=== PATIENT | male | born 1965 | race Caucasian/White ===

== ENCOUNTER 2019-03-04 17:11 | Inpatient (IN) ==
[2019-03-04] MEDS ORDERED: NS 1,000 ML IV ONE ×2 (17:35→19:21)
[2019-03-04] MEDS ORDERED: ASPIRIN EC PO ONE (17:36)
--- NOTE | 2019-03-04 17:51 | EKG Report ---
Test Performed on : 03/04/2019 5:22:27 PM Test Reason : chest pain Blood Pressure : / mmHG Vent. Rate : 119 BPM Atrial Rate : 119 BPM P-R Int : 132 ms QRS Dur : 096 ms QT Int : 350 ms P-R-T Axes : 048 033 164 degrees QTc Int : 492 ms Sinus tachycardia. Left atrial enlargement Left ventricular hypertrophy with repolarization abnormality Abnormal ECG When compared with ECG of 04-MAR-2019 17:21, (Unconfirmed) No significant change was found Unconfirmed Result
--- NOTE | 2019-03-04 18:01 | PROVIDER DOCUMENTATION ---
This chart was entered by Ricky Hardy Scribe, acting as scribe for Javan Arias MD. HPI-Chest Pain - General Source: patient, family - History of Present Illness-CP Location: reports: epigastric, abdomen Chest Pain Radiation: reports: no radiation Quality of Pain: reports: aching Severity in ED: moderate Onset/Duration: 2 days ago (SOB), this evening (chest pains) Timing: still present Context/Activities at Onset: reports: none Modifying Factors: worse with: breathing Associated Symptoms: reports: abdominal pain, shortness of breath. denies: back pain, diaphoresis, fever/chills, nausea, vomiting Nitro Today/Relief: no nitro taken today Aspirin Treatment Today: no aspirin today Prior Chest Pain/Cardiac Workup: reports: no prior chest pain Similar Symptoms Previously?: No Recently Seen Here or By Another Healthcare Provider: No <Javan Arias - Last Filed: 03/04/19 18:58> <Oly Gaona - Last Filed: 03/04/19 21:19> - General Chief Complaint: Chest Pain Stated Complaint: CP,SOB,COUGHING,ABD PAIN Time Seen by Provider: 03/04/19 17:31 Allergies/Adverse Reactions: Patient Allergies Allergy/AdvReac Type Severity Reaction Status Date / Time acetaminophen [From Percocet] AdvReac DIARRHEA Verified 03/04/19 20:41 oxycodone HCl * AdvReac DIARRHEA Verified 03/04/19 20:41 [From Percocet] Home Medications: Home Medication List Medication Instructions Recorded Confirmed Last Taken Type NK [No Home Medications] 03/04/19 03/04/19 Unknown History - History of Present Illness-CP Nature of Presenting Problem: 53 yom presents to the ed with c/o chest pains. pt states epi chest pains( started yesterday) with epi abdominal pains, " think i have hernia." pt states SOB started 2 days ago. 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 pt states family hx of heart attacks. (Javan Arias) Review of Systems - Adult - REVIEW OF SYSTEMS - ADULT Constitutional: denies: chills, fever Eyes: reports: no symptoms reported Ears, Nose, Mouth & Throat: reports: no symptoms reported Cardiovascular: reports: see HPI, chest pain. denies: syncope Respiratory: reports: see HPI, cough, shortness of breath. denies: chronic cough, wheezing Gastrointestinal: reports: see HPI, abdominal pain. denies: constipation, diarrhea, nausea, rectal bleeding, vomiting Genitourinary: reports: no symptoms reported Musculoskeletal: denies: back pain, neck pain Integumentary: reports: no symptoms reported Neurological: reports: no symptoms reported Psychiatric: reports: no symptoms reported Endocrine: reports: no symptoms reported Hematologic/Lymphatic: reports: no symptoms reported Allergic/Immunologic: reports: no symptoms reported All Other Systems: Reviewed and Negative <Javan Arias - Last Filed: 03/04/19 18:58> Past History - Adult - PAST MEDICAL HISTORY-ADULT Review of Records: reports: Old Records Reviewed, Nursing Assessment Review, Medications Reviewed, Social history reviewed & non-contributory. Major Childhood Illnesses: reports: denies history Cardiovascular: reports: denies history Respiratory: reports: denies history Gastrointestinal: reports: denies history Obstetrical/Gynecological: reports: denies history Genitourinary: reports: denies history Musculoskeletal: reports: denies history Neurological: reports: denies history Psychiatric: reports: denies history Endocrine/Immune: reports: denies history Other Conditions: reports: denies history - PRIOR SURGERIES/PROCEDURES Surgical/Procedure History: reports: none - IMMUNIZATION STATUS Childhood Immunizations: See Nurse Assessment Flu Vaccine: See Nurse Assessment - FAMILY HISTORY Family History: other (hx of heart attacks) - SOCIAL HISTORY Smoking: cigarettes, less than 1 pack/day Provider spent 3-5 mins advising pt. on dangers of tobacco.: Discussed manners to quit use, and f/u contacts for add'l counseling. Substance Use: denies Living Situation: family <Javan Arias - Last Filed: 03/04/19 18:58> Physical Exam-General - PHYSICAL EXAM-ADULT Initial Vital Signs Reviewed: Yes - CONSTITUTIONAL General Appearance: appears well, alert, mild distress - RESPIRATORY Respiratory: chest non-tender, lungs clear, normal breath sounds - CARDIOVASCULAR Cardiovascular: regular rate, rhythm, tachycardia (116) - GASTROINTESTINAL (ABDOMEN) Abdominal Exam: normal bowel sounds, non tender, soft, hernia (upper abdomen) - GENITOURINARY Male Genitalia: deferred Rectal Exam: deferred Hemoccult Exam: deferred - SKIN Integumentary: normal color, normal turgor, warm/dry - NEUROLOGIC Neurologic: grossly normal, no motor/sensory deficits - PSYCHIATRIC Psych/Mental Status: normal mood/affect, normal thought content, normal thought process, oriented x 3 <Javan Arias - Last Filed: 03/04/19 18:58> - HEART Score HEART Score: History: Moderately Suspicious HEART Score: ECG: Non-Specific Repolarization Disturbance/LBBB/PM HEART Score: Age: 45-65 Years HEART Score: Risk Factors for Atherosclerotic Disease: 1 or 2 Risk Factors HEART Score: Troponin: < or = Normal Limit Total HEART Score:: 4 <Javan Arias - Last Filed: 03/04/19 18:58> Progress - PLAN OF CARE/RESULTS Result Diagrams: 03/04/19 17:48 03/04/19 17:48 - EKG 1 Time of EKG reading by physician:: 17:22 EKG Read and Signed by:: Javan Arias EKG Interpretation (*Must complete 3 of following elements*): Abnormal Rate: 119 Rhythm: sinus tachycardia [place]: normal QRS: normal [place] Interval: normal ST Wave: normal Comments: Lt atrial enlargement/Lt ventricular hypertrophy w/repolrization abnormaliy - CONSULTS/PCP/HOSPITALIST Notification #1 *Consult/PCP/Hospitalist*: Dr Millan Time Discussed: 18:00 Reason/Comments: no STEMI, Early repolarization with LVH - CHANGE OF SHIFT REPORT (ED Provider) 1 Report Given and Care Transferred to:: Dr Lamb Time of Transfer: 19:00 Items Pending: Labs, XRAY Results <Javan Arias - Last Filed: 03/04/19 18:58> - PLAN OF CARE/RESULTS Result Diagrams: 03/04/19 17:48 03/04/19 17:48 - REASSESSMENT Reassessment #1 Status: improving (Continued cough and dyspnea likely due to new onset CHF and BL PNA. no spesis. Treated with levaquin, lasix and hydralazine for this BP. Desaturates to 88% on room air. Will admit for further evaluation and treatment. Discussed case with Dr. Bean, Hospitalist, who will see and admit pt.) - CT/MRI 1 CT Study: Angiogram Impression: Abnormal (IMPRESSION: 1.No pulmonary emboli 2.Congestive failure 3.Basilar atelectasis and likely underlying infiltrates) <Oly Gaona - Last Filed: 03/04/19 21:19> - PLAN OF CARE/RESULTS Progress/Plan/Lab Results: Vital Signs - 8 hr 03/04/19 17:17 03/04/19 17:24 03/04/19 17:25 Temperature 97.6 F Pulse Rate 116 H 115 H 117 H Respiratory Rate 28 H Blood Pressure 218/155 218/158 O2 Sat by Pulse Oximetry 88 L 03/04/19 17:27 03/04/19 17:30 03/04/19 17:45 Temperature Pulse Rate 119 H 113 H 117 H Respiratory Rate 28 H Blood Pressure 218/155 O2 Sat by Pulse Oximetry 91 L 92 L 03/04/19 18:00 03/04/19 18:15 03/04/19 18:21 Temperature Pulse Rate 120 H 115 H 112 H Respiratory Rate 18 Blood Pressure 208/151 O2 Sat by Pulse Oximetry 91 L 90 L 90 L 03/04/19 18:24 03/04/19 18:30 03/04/19 18:45 Temperature Pulse Rate 114 H 113 H 121 H Respiratory Rate Blood Pressure 208/151 O2 Sat by Pulse Oximetry 90 L 89 L 91 L 03/04/19 19:00 03/04/19 19:02 03/04/19 19:15 Temperature Pulse Rate 118 H 120 H 117 H Respiratory Rate Blood Pressure 219/160 203/158 O2 Sat by Pulse Oximetry 91 L 92 L 92 L 03/04/19 19:16 03/04/19 19:29 03/04/19 19:30 Temperature Pulse Rate 115 H 118 H 117 H Respiratory Rate 25 H Blood Pressure 206/150 216/159 214/155 O2 Sat by Pulse Oximetry 94 L 93 L 94 L 03/04/19 19:31 03/04/19 19:32 03/04/19 20:05 Temperature Pulse Rate 114 H 113 H 120 H Respiratory Rate 25 H 27 H Blood Pressure 217/159 O2 Sat by Pulse Oximetry 94 L 94 L 90 L 03/04/19 20:12 03/04/19 20:43 Temperature 97.8 F Pulse Rate 120 H Respiratory Rate Blood Pressure 221/158 O2 Sat by Pulse Oximetry 94 L 95 Laboratory Results - last 24 hr 03/04/19 03/04/19 03/04/19 17:48 17:48 17:48 WBC 10.66 RBC 4.59 L Hgb 13.7 L Hct 40.6 L MCV 88.5 MCH 29.8 MCHC 33.7 RDW Std Deviation 12.9 Plt Count 126 L MPV 12.3 H Immature Gran % (Auto) 0.3 Neut % (Auto) 77.8 H Lymph % (Auto) 11.6 L [place] % (Auto) 8.3 Eos % (Auto) 1.7 Baso % (Auto) 0.3 Immature Gran # (Auto) 0.03 Neut # (Auto) 8.30 H Lymph # (Auto) 1.24 [place] # (Auto) 0.88 H Eos # (Auto) 0.18 Baso # (Auto) 0.03 PT INR PTT (Actin FS) D-Dimer, Quantitative 0.82 H Sodium 136 Potassium 3.4 L Chloride 98 Carbon Dioxide 24 L Anion Gap 14 BUN 37 H Creatinine 1.9 H Estimated GFR/1.73 m2 38 BUN/Creatinine Ratio 19 Glucose 113 H Calculated Osmolality 281 Calcium 8.8 Total Bilirubin 0.38 AST 33 ALT 25 Alkaline Phosphatase 112 Creatine Kinase 150 Troponin T Vil-T-Tmrkrsaaemd Pept Total Protein 6.0 L Albumin 3.7 Globulin 2.3 Albumin/Globulin Ratio 1.6 Plasma Lactate Urine Source Urine Color Urine Turbidity Urine pH Ur Specific [place] Urine Protein Ur Glucose (Stick) Ur Ketones (Stick) Urine Blood Urine Nitrite Urine Bilirubin Urobilinogen Dipstick Urine Leukocytes Urine WBC (Auto) Urine RBC (Auto) U Epithel Cells (Auto) Urine Bacteria (Auto) Urine Opiates Screen Ur Oxycodone Screen Ur Methadone, Qual Ur Barbiturates Screen Ur Phencyclidine Scrn Ur Amphetamines Screen U Benzodiazepines Scrn Urine Cocaine Screen U Cannabinoids Screen 03/04/19 03/04/19 03/04/19 17:48 17:48 18:10 WBC RBC Hgb Hct MCV MCH MCHC RDW Std Deviation Plt Count MPV Immature Gran % (Auto) Neut % (Auto) Lymph % (Auto) [place] % (Auto) Eos % (Auto) Baso % (Auto) Immature Gran # (Auto) Neut # (Auto) Lymph # (Auto) [place] # (Auto) Eos # (Auto) Baso # (Auto) PT 13.0 INR 0.97 PTT (Actin FS) 22.0 L D-Dimer, Quantitative Sodium Potassium Chloride Carbon Dioxide Anion Gap BUN Creatinine Estimated GFR/1.73 m2 BUN/Creatinine Ratio Glucose Calculated Osmolality Calcium Total Bilirubin AST ALT Alkaline Phosphatase Creatine Kinase Troponin T 0.021 Res-N-Syrgmkqxpdp Pept Total Protein Albumin Globulin Albumin/Globulin Ratio Plasma Lactate 0.7 Urine Source Urine Color Urine Turbidity Urine pH Ur Specific [place] Urine Protein Ur Glucose (Stick) Ur Ketones (Stick) Urine Blood Urine Nitrite Urine Bilirubin Urobilinogen Dipstick Urine Leukocytes Urine WBC (Auto) Urine RBC (Auto) U Epithel Cells (Auto) Urine Bacteria (Auto) Urine Opiates Screen Ur Oxycodone Screen Ur Methadone, Qual Ur Barbiturates Screen Ur Phencyclidine Scrn Ur Amphetamines Screen U Benzodiazepines Scrn Urine Cocaine Screen U Cannabinoids Screen 03/04/19 03/04/19 03/04/19 18:10 18:39 18:39 WBC RBC Hgb Hct MCV MCH MCHC RDW Std Deviation Plt Count MPV Immature Gran % (Auto) Neut % (Auto) Lymph % (Auto) [place] % (Auto) Eos % (Auto) Baso % (Auto) Immature Gran # (Auto) Neut # (Auto) Lymph # (Auto) [place] # (Auto) Eos # (Auto) Baso # (Auto) PT INR PTT (Actin FS) D-Dimer, Quantitative Sodium Potassium Chloride Carbon Dioxide Anion Gap BUN Creatinine Estimated GFR/1.73 m2 BUN/Creatinine Ratio Glucose Calculated Osmolality Calcium Total Bilirubin AST ALT Alkaline Phosphatase Creatine Kinase Troponin T Aej-[place]-Xtfpdmemuse Pept 36426 H Total Protein Albumin Globulin Albumin/Globulin Ratio Plasma Lactate Urine Source CLEAN CATCH Urine Color YELLOW Urine Turbidity CLEAR Urine pH 6.5 Ur Specific [place] 1.013 Urine Protein 300 A Ur Glucose (Stick) NEGATIVE Ur Ketones (Stick) NEGATIVE Urine Blood SMALL A Urine Nitrite NEGATIVE Urine Bilirubin NEGATIVE Urobilinogen Dipstick NORMAL Urine Leukocytes NEGATIVE Urine WBC (Auto) <10 Urine RBC (Auto) <10 U Epithel Cells (Auto) <10 Urine Bacteria (Auto) NEGATIVE Urine Opiates Screen NONE DETECTED Ur Oxycodone Screen NONE DETECTED Ur Methadone, Qual NONE DETECTED Ur Barbiturates Screen NONE DETECTED Ur Phencyclidine Scrn NONE DETECTED Ur Amphetamines Screen NONE DETECTED U Benzodiazepines Scrn NONE DETECTED Urine Cocaine Screen NONE DETECTED U Cannabinoids Screen PRESUMPTIVE POSITIVE A Orders Category Date Time Status Cardiac Monitoring DIRECTED Care 03/04/19 17:53 Active IV Insertion ORDERED Care 03/04/19 17:53 Active Notify MD of + Sepsis Screen NOW Care 03/04/19 17:53 Active Notify Physician As Ordered Care 03/04/19 17:53 Active CHEST-1 VIEW [RAD] Stat Exams 03/04/19 17:[address] ANGIOGRM PULMONARY ARTERIES [CT] Stat Exams 03/04/19 19:21 Completed BLOOD CULTURE [BLDCUL] Stat Lab 03/04/19 18:33 Results BNP [PRO B-NATRIURETIC PEPTIDE] Stat Lab 03/04/19 18:10 Completed CBC WITH DIFF [HEME] Stat Lab 03/04/19 17:48 Completed CK PROFILE [SP CHEM] Stat Lab 03/04/19 17:48 Completed COMPREHENSIVE METABOLIC PANEL [CHEM] Stat Lab 03/04/19 17:48 Completed D-DIMER [COAG] Stat Lab 03/04/19 17:48 Completed LACTATE, PLASMA [CHEM] Lab 03/04/19 21:00 Uncollected LACTATE, PLASMA [CHEM] Lab 03/05/19 00:00 Uncollected LACTATE, PLASMA [CHEM] Q3H Lab 03/04/19 18:10 Completed PROTIME WITH INR [COAG] Stat Lab 03/04/19 17:48 Completed PTT [COAG] Stat Lab 03/04/19 17:48 Completed TROPONIN T Stat Lab 03/04/19 17:48 Completed URINALYSIS W/POSS RFLX CULT [URINALYSIS] Stat Lab 03/04/19 18:39 Completed URINE DRUG SCREEN Stat Lab 03/04/19 18:39 Completed 0.9% Sodium Chloride Inj [Ns] 1,000 ml Med 03/04/19 17:35 Discontinued IV 999 mls/hr 0.9% Sodium Chloride Inj [Ns] 1,000 ml Med 03/04/19 19:21 Discontinued IV 999 mls/hr Aspirin EC Med 03/04/19 17:36 Discontinued 325 mg PO NOW ONE Benzonatate [Tessalon] Med 03/04/19 20:58 Discontinued 200 mg PO NOW ONE Furosemide [Lasix] Med 03/04/19 21:12 Discontinued 40 mg IV NOW ONE Hydralazine [Apresoline] Med 03/04/19 19:27 Discontinued 10 mg IV NOW ONE Hydralazine [Apresoline] Med 03/04/19 21:12 Discontinued 10 mg IV NOW ONE Levofloxacin 750 mg/D5w [Levaquin 750 mg/D5w] Med 03/04/19 18:56 Discontinued 750 mg in 150 ml IV NOW Metoprolol [Lopressor] Med 03/04/19 19:27 Discontinued 25 mg PO NOW ONE Ondansetron [Zofran] Med 03/04/19 20:58 Discontinued 4 mg IV NOW ONE Promethazine [Phenergan] Med 03/04/19 20:58 Discontinued 25 mg IM NOW ONE Oxygen Device Stat Oth 03/04/19 17:53 Completed EKG [EKG] Stat Ther 03/04/19 17:48 Draft Departure - Departure Date of Disposition Decision: 03/04/19 Certified Medical Emergency: Emergent <Javan Arias - Last Filed: 03/04/19 18:58> - Departure Time of Disposition Decision: 21:15 - Critical Care Note This patient required my direct & personal management of CC.: No <Oly Gaona - Last Filed: 03/04/19 21:19> - Departure DIAGNOSIS: Tobacco use disorder, New onset of congestive heart failure, Hypoxia Pneumonia Qualifiers: Pneumonia type: due to unspecified organism Laterality: bilateral Lung location: unspecified part of lung Qualified Code(s): J18.9 - Pneumonia, unspecified organism Hypertension Qualifiers: Hypertension type: unspecified Qualified Code(s): I10 - Essential (primary) hypertension Disposition: ADMITTED INPATIENT 09 Condition: Fair Attestation - Physician/ NORMA Attestation Patient care was provided by Advanced Practice Provider:: No The physician spent face to face time with patient:: Yes Advanced Practice Provider documentation review:: Supervising physician onsite and consulted in the evaluation and care of this patient. The physician did have a face to face encounter with the patient. <Javan Arias - Last Filed: 03/04/19 18:58> This chart was documented by the indicated scribe, (Ricky Hardy, Johanne) a nd accurately reflects the services I performed and decisions made by me, Javan Arias MD, as attested by the provider's signature.
[2019-03-04 18:05] LABS: BASO# 0.03 X1000 (0.0-0.2); BASO% 0.3 % (0.0-0.8); EOS# 0.18 X1000 (0.0-0.7); EOS% 1.7 % (0.0-10.0); HEMATOCRIT 40.6 % (42.0-52.0); HEMOGLOBIN 13.7 g/dL (14.0-18.0); IMM GRAN# 0.03 X1000 (0.0-0.04); IMM GRAN% 0.3 % (0.0-0.5); LYMPH# 1.24 X1000 (1.2-3.4); LYMPH% 11.6 % (20.5-51.1); MCH 29.8 PG (27-31); MCHC 33.7 g/dL (33-37); MCV 88.5 FL (81-99); MONO# 0.88 X1000 (0.11-0.59); MONO% 8.3 % (1.7-9.3); MPV 12.3 FL (7.4-10.4); NEUT% 77.8 % (42.2-75.2); PLT 126 X1000 (130-400); RBC 4.59 XMIL (4.7-6.1); RDW 12.9 % (11.5-14.5); WBC 10.66 X1000 (4.8-10.8)
--- NOTE | 2019-03-04 18:13 | Diag Imaging Result Doc PS360 ---
EXAM: CHEST-1 VIEW HISTORY: chest pain TECHNIQUE: Single view COMPARISON: None FINDINGS: The lungs are well expanded except for basilar atelectasis. There are bilateral infiltrates as well as small pleural effusions. No cardiomegaly. IMPRESSION: Bilateral infiltrates Electronically signed by Jim Griffiths 03/04/2019 6:11 PM
[2019-03-04 18:20] LABS: INR 0.97
[2019-03-04 18:41] LABS: URINE SOURCE CLEAN CATCH
[2019-03-04 18:42] LABS: ALB/GLOB RATIO 1.6; ALBUMIN 3.7 g/dL (3.5-5.0); CALCIUM 8.8 mg/dL (8.8-10.2); CREATININE 1.9 mg/dL (0.7-1.2); POTASSIUM 3.4 mmol/L (3.5-5.1); TOTAL BILIRUBIN 0.38 mg/dL (0.20-1.00)
[2019-03-04 18:45] LABS: BILIRUBIN URINE NEGATIVE (NEGATIVE); BLOOD URINE SMALL (NEGATIVE); COLOR YELLOW; GLUCOSE URINE NEGATIVE (NEGATIVE); KETONE URINE NEGATIVE (NEGATIVE); LEUKOCYTES URINE NEGATIVE (NEGATIVE); NITRITE URINE NEGATIVE (NEGATIVE); PH URINE 6.5; PROTEIN URINE 300 mg/dL (NEGATIVE); SP GRAVITY URINE 1.013; TURBIDITY URINE CLEAR (CLEAR); UROBILINOGEN URINE NORMAL (NORMAL)
[2019-03-04 18:47] LABS: UR EPITHELIAL CELLS <10 /HPF (<10); URINE BACTERIA NEGATIVE /HPF; URINE RBC <10 /HPF (<10); URINE WBC <10 /HPF (<10)
[2019-03-04] MEDS ORDERED: LEVAQUIN 750 MG/D5W 750 MG/150 ML IVPB IV ONE (18:56)
[2019-03-04 19:16] LABS: UR AMPHETAMINES QUAL NONE DETECTED (NONE DETECT); UR BARBITUATES QUAL NONE DETECTED (NONE DETECT); UR BENZODIAZEPIN QUAL NONE DETECTED (NONE DETECT); UR CANNABINOIDS QUAL PRESUMPTIVE POSITIVE (NONE DETECT); UR COCAINE QUAL NONE DETECTED (NONE DETECT); UR METHADONE QUAL NONE DETECTED (NONE DETECT); UR OPIATES QUAL NONE DETECTED (NONE DETECT); UR OXYCODONE QUAL NONE DETECTED (NONE DETECT); UR PCP QUAL NONE DETECTED (NONE DETECT)
[2019-03-04] MEDS ORDERED: APRESOLINE IV ONE ×2 (19:27→21:12)
[2019-03-04] MEDS ORDERED: LOPRESSOR PO ONE (19:27)
--- NOTE | 2019-03-04 20:29 | Diag Imaging Result Doc PS360 ---
EXAM: CT ANGIOGRM PULMONARY ARTERIES HISTORY: difficulty breathing, left arm swollen TECHNIQUE: CT chest with intravenous contrast. Pulmonary arterial protocol with MIP images. COMPARISON: None. FINDINGS: Normal opacification of the pulmonary arteries and their branches. There is pulmonary edema. There are yknmd-ej-rqmrphib sized bilateral pleural effusions measuring 3.5 cm posteriorly and inferiorly in the midline. The heart is enlarged. There are small mediastinal nodes. Bibasilar atelectasis with lower lobe infiltrates. There is also moderate emphysematous changes. IMPRESSION: 1.No pulmonary emboli 2.Congestive failure 3.Basilar atelectasis and likely underlying infiltrates This exam was performed using automated exposure control, adjustment of mA or kV according to patient size, and/or use of iterative reconstruction technique. Electronically signed by Jim Griffiths 03/04/2019 8:26 PM
[2019-03-04] MEDS ORDERED: TESSALON PO ONE (20:58)
[2019-03-04] MEDS ORDERED: PHENERGAN IM ONE (20:58)
[2019-03-04] MEDS ORDERED: ZOFRAN IV ONE (20:58)
[2019-03-04] MEDS ORDERED: LASIX IV ONE (21:12)
[2019-03-04] MEDS ORDERED: NITROGLYCERIN TOP ONE (21:30)
[2019-03-04] MEDS: LASIX IV SCH (22:20)
[2019-03-04] MEDS ORDERED: DUONEB (A & A) INH PRN (22:20)
[2019-03-04] MEDS: NORVASC PO ONE (22:20)
[2019-03-04] MEDS ORDERED: ZOFRAN IV PRN (22:20)
[2019-03-04] MEDS ORDERED: CATAPRES PO PRN (22:20)
[2019-03-04] MEDS: LEVAQUIN 500 MG/D5W 500 MG/100 ML IVPB IV SCH (22:48)
[2019-03-05] MEDS: NORVASC PO ONE (00:18)
--- NOTE | 2019-03-05 01:52 | HISTORY AND PHYSICAL ---
PRIMARY CARE PHYSICIAN: None. CHIEF COMPLAINT: Shortness of breath times several days. HISTORY OF PRESENTING ILLNESS: This is a 53-year-old male without any significant past medical history who presented to emergency department with several days history of worsening shortness of breath. The patient states that he was not feeling well and subsequently had come to the emergency department. In the ED, he was evaluated. He had imaging done which did show possibility of heart failure and also probable pneumonia. Due to these findings, it was thought that he would need admission for further management. During his initial evaluation it was noted that his blood pressure was markedly elevated and this was treated with appropriate antihypertensive agents. The patient will require PVC admission for further management. At the time of my examination, patient denied any headache, fever, chills, hemoptysis, melena, but complained of shortness of breath and not feeling well. PAST MEDICAL HISTORY: None. PAST SURGICAL HISTORY: None. ALLERGIES: No known drug allergies. CURRENT MEDICATIONS: None. SOCIAL HISTORY: Fifteen pack years history of smoking. Denies any history of alcohol or illicit drug use. FAMILY HISTORY: Positive for coronary artery disease in mother and father. REVIEW OF SYSTEMS: Fourteen point review of system as listed in HPI. Other systems negative. PHYSICAL EXAMINATION: GENERAL: Cooperative, friendly male. He is resting more comfortably now. VITAL SIGNS: Temperature 97.6 degrees, pulse 116, respirations 28, blood pressure 218/155. HEENT: Atraumatic, normocephalic. Extraocular movements intact. PERRLA. NECK: No masses. CHEST: Bibasilar rales. CARDIOVASCULAR: Regular rate and rhythm. ABDOMEN: Soft. Positive bowel sounds. EXTREMITIES: Trace edema. NEUROLOGIC: He is awake, alert, oriented x3. GENITOURINARY: No bladder distention. SKIN: Warm. LABORATORIES AND STUDIES: Sodium 136, potassium 3.4, chloride 98, CO2 is 24, BUN is 37 creatinine is 1.9, glucose 113. ProBNP is 21,209. WBC 10.66, hemoglobin 13.7, hematocrit 40.6, platelets 126,000. Toxicology screen is positive for cannabinoids. Pulmonary arteriogram shows congestive heart failure, bilateral atelectasis and likely underlying infiltrates. ASSESSMENT: A 53-year-old male without any significant past medical history who presented to the emergency department with several days history of worsening shortness of breath. He was evaluated in the emergency department. He was found to be in heart failure. Subsequently, he will require admission for further management. 1. Acute congestive heart failure exacerbation, unspecified. 2. Probable underlying pneumonia. 3. Chronic obstructive pulmonary disease. 4. Acute kidney injury. 5. Hypertension, uncontrolled. 6. Ongoing tobacco abuse. PLAN: 1. We will admit patient to [facility]. 2. Continue with gentle diuresis with Lasix. 3. We will check echocardiogram. 4. We will check blood cultures and start patient on IV antibiotics. 5. Continue with DuoNebs p.r.n. 6. Monitor renal function. 7. Monitor blood pressure closely. Resume antihypertensive agent. 8. Counseled patient on smoking cessation. 9. Put patient on DVT prophylaxis with SCDs and heparin. 10. We will continue to follow, reassess and make further recommendation based on patient's clinical course. cc: Dong Bean MD
[2019-03-05 09:36] LABS: BASO# 0.02 X1000 (0.0-0.2); BASO% 0.2 % (0.0-0.8); EOS# 0.03 X1000 (0.0-0.7); EOS% 0.4 % (0.0-10.0); HEMATOCRIT 39.2 % (42.0-52.0); HEMOGLOBIN 13.2 g/dL (14.0-18.0); IMM GRAN# 0.02 X1000 (0.0-0.04); IMM GRAN% 0.2 % (0.0-0.5); LYMPH# 0.82 X1000 (1.2-3.4); LYMPH% 9.8 % (20.5-51.1); MCH 29.9 PG (27-31); MCHC 33.7 g/dL (33-37); MCV 88.9 FL (81-99); MONO# 1.02 X1000 (0.11-0.59); MONO% 12.1 % (1.7-9.3); MPV 12.1 FL (7.4-10.4); NEUT# 6.49 X1000 (1.4-6.5); NEUT% 77.3 % (42.2-75.2); PLT 131 X1000 (130-400); RBC 4.41 XMIL (4.7-6.1); RDW 12.9 % (11.5-14.5)
[2019-03-05 09:48] LABS: CALCIUM 8.4 mg/dL (8.8-10.2); CREATININE 1.8 mg/dL (0.7-1.2); POTASSIUM 2.9 mmol/L (3.5-5.1)
[2019-03-05] MEDS ORDERED: MAGNESIUM SULFATE 2 GM/S.W.I. 2 GM/50 ML IVPB IV ONE (12:04)
[2019-03-05] MEDS: LASIX IV SCH ×2 (12:09→22:30)
[2019-03-05] MEDS: POTASSIUM CHLORIDE 20 MEQ/SWI 20 MEQ/100 ML IVPB IV SCH ×2 (12:10→16:34)
[2019-03-05] MEDS: KLOR-CON PO SCH ×2 (12:10→15:23)
--- NOTE | 2019-03-05 13:05 | PROGRESS NOTE ---
DATE: 03/05/2019 INTERVAL HISTORY: Mr. Jones was admitted for gradually progressive shortness of breath since many days with exertional worsening, chest discomfort, occasional cough, and chills. In the emergency room, he was found to have sinus tachycardia, hypertensive emergency, acute pulmonary edema, and acute hypoxic respiratory failure. He was admitted for further management. SUBJECTIVE: Mr. Jones states he is feeling much, much better in the morning time than yesterday. He states he made a good amount of urine overnight. He denies any more chest pain, shortness of breath, cough, fevers, or chills. His family and friends are at bedside. I discussed with them about hypertensive emergency, hypertensive heart disease, COPD, emphysema, and kidney dysfunction, and I answered all of their questions. VITALS: Temperature of 97.8 degrees, pulse 84, respiratory rate 14, blood pressure 160/100. He is saturating 94% on 2 to 3 L nasal cannula. PHYSICAL EXAMINATION: Not in any acute distress. Oral cavity is moist. He appears to have a low body mass index. Air Entry: He has decreased breath sounds bilaterally without any wheeze, rhonchi, or crackles. S1 is normal. Very loud S2. No murmur, rub, or gallop. Abdomen: Soft, nontender. No lower extremity edema. He is alert and oriented x3. LABS: Suggestive of normocytic anemia, normal platelet count, hypokalemia- currently being repleted, low magnesium-currently being repleted. He has stable kidney dysfunction. His lactate was normal. His urinalysis did not have any significant abnormality. The cannabinoids screen was positive. Blood cultures are in lab. Pulmonary arteriogram performed yesterday had no pulmonary emboli, congestive heart failure, and likely underlying infiltrate. ASSESSMENT AND PLAN: 1. Acute hypoxic respiratory failure due to acute pulmonary edema due to hypertensive emergency. Continue oxygenation to maintain saturation more than 92%. Continue to monitor breathing status in PVC unit. 2. Hypertensive emergency leading to acute pulmonary edema. His EKG had sinus tachycardia with T- wave inversions in the lateral leads with a left ventricular hypertrophy. I will follow up with echocardiogram to evaluate for ventricular systolic or diastolic dysfunction. I will start him on oral metoprolol and we will diurese him with gentle Lasix. Depending on the kidney function, I will consider starting him on MARY BETH inhibitors. Echocardiogram results are pending. I will replete his potassium and magnesium to keep them above 4 and 2 respectively. He currently denies any chest pain and has a nitroglycerin patch on, which I will continue. 3. Active tobacco abuse. Based on CT scan, he does have emphysema. He will need outpatient pulmonology followup. I will keep him on inhaled bronchodilators. I will keep him on intravenous levofloxacin for left lower lobe lung infiltrate and suspected pneumonia, and we will follow up with blood culture and sputum culture results. 4. Kidney dysfunction. It could be related to longstanding hypertension leading to chronic hypertensive nephropathy. It could also be NATAN due to hypertensive emergency. No previous records or history available. I will get protein, sodium and creatinine in the urine, Renal Ultrasound and we will monitor. 5. Disposition. I will continue to monitor the patient in the PVC unit. We will control blood pressure and we will get an echocardiogram. He may eventually, in the future, need workup of coronary artery disease. Plan of care discussed with the patient and his friends and family at bedside. Their questions have been answered. cc: Aime Gentile MD MTDD
--- NOTE | 2019-03-05 17:30 | CONSULTATION ---
DATE OF CONSULTATION: 03/05/2019 IMPRESSION: 1. Acute congestive heart failure with pulmonary edema and bilateral pleural effusions. 2. Hypertensive cardiovascular disease. Patient appears to have had untreated hypertension and ECG manifests left hypertrophy with repolarization abnormality. 3. Renal dysfunction with creatinine 1.8 to 1.9 consistent with GFR of 40. Given history of hypertension probably untreated for unspecified period of time, is likely that he has hypertensive renal disease as well. 4. Chronic cigarette use. RECOMMENDATIONS: 1. Diurese with intravenous Lasix. 2. Initiate Coreg for blood pressure. Agree with initiation of amlodipine. 3. Follow up echocardiography. 4. Further recommendations to follow echocardiography result. HISTORY: This 53-year-old white male who has not had medical care for many years presented to emergency room with complaint of dyspnea and orthopnea over the past week. He was found to have evidence of congestive heart failure with pulmonary edema and bilateral pleural effusions. He was hypertensive. ECG manifests sinus rhythm and left hypertrophy with repolarization abnormality. Creatinine is also elevated at 1.9. He was admitted for diuresis. He has no history of medical issues although he states he has not seen a doctor in more than 10 years. 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 He smokes 1 pack of cigarettes per day. He relates that about a week ago he started having some shortness of breath with exertion. This seemed to improve transiently but over the last 48 hours his shortness of breath has gotten worse and he has had orthopnea. There has been no chest pain. There has been no peripheral swelling. He was unaware of his hypertension. PAST MEDICAL HISTORY: The patient unaware of any medical problems. PAST SURGICAL HISTORY: None . ALLERGIES: He is allergic or intolerant of acetaminophen and oxycodone. He is on no medications prior to admission. 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 He smokes a pack cigarettes per day. He does not use alcohol. He denies recreational drug use. FAMILY HISTORY: Negative for premature coronary disease. REVIEW OF SYSTEMS: Pulmonary: Noncontributory beyond history of present illness. Gastrointestinal: Negative. Constitutional: Negative. Remainder review of systems negative/noncontributory beyond history of present illness. PHYSICAL EXAMINATION: General: This is a middle-aged male in no distress on supplemental oxygen per nasal cannula. Vital signs: Blood pressure 144/96, heart rate 98, oxygen saturation 98% on nasal cannula oxygen at 2 L/minute. HEENT: Extraocular movements intact. Mucous membranes are moist. Neck: Supple without significant jugular distention. There are no carotid bruits. Chest: Auscultation of the chest reveals diminished breath sounds at bases bilaterally. Cardiac Exam: Reveals a regular rate and rhythm without appreciable murmur or gallop. Abdomen: Soft. Bowel sounds normal. Extremities: Without edema. Neurologic: Reveals him to be alert and fully oriented. Speech is fluent. He moves all 4 extremities equally well. Skin: Warm, dry. Psychiatric: Reveals mood to be appropriate. DIAGNOSTIC DATA: 12 lead EKG demonstrates normal sinus rhythm and left hypertrophy with repolarization abnormality. LABORATORY DATA: Includes a white blood cell count 8.4, hematocrit 39.2, hemoglobin 13.2, platelet count 131,000. Sodium 136, potassium 2.9, chloride 98, carbon dioxide 26, BUN 36, creatinine 1.8, glucose 97, magnesium 1.7. Initial troponin T 0.021, followup troponin T 0.021 and 0.023. Urine drug screen positive for cannabinoids. cc: Solomon Millan MD
[2019-03-05] MEDS ORDERED: LOPRESSOR PO SCH (21:00)
[2019-03-05] MEDS: COREG PO SCH (21:04)
[2019-03-05] MEDS: LEVAQUIN 500 MG/D5W 500 MG/100 ML IVPB IV SCH (22:30)
[2019-03-06] LABS: UR CREAT RANDOM 59.1 mg/dL (14-26); UR PROT RANDOM 109.4 mg/dL
[2019-03-06] MEDS: CATAPRES PO PRN ×2 (02:27→05:24)
[2019-03-06 06:51] LABS: CHOLESTEROL 160 mg/dL (0-200); HDL 37 mg/dL (35-55); LDL 108 mg/dL; TRIGLYCERIDES 76 mg/dL (39-160); VLDL 15 mg/dL
[2019-03-06] MEDS: LASIX IV SCH (07:35)
[2019-03-06] MEDS: COREG PO SCH ×3 (07:35→21:55)
--- NOTE | 2019-03-06 10:00 | ECHO REPORT ---
ORDER DATE: 03/04/2019 ECHOCARDIOGRAPHIC MEASUREMENTS: 1. Left ventricular internal diameter end-diastole 5.0. 2. Left ventricular internal diameter end-systole 4.5. 3. Septal thickness 0.9. 4. Posterior wall thickness 0.9. 5. Aortic root 2.7. 6. Left atrium 4.0. SUMMARY: 1. Adequate quality study. 2. Aortic valve is trileaflet and opens normally on 2-dimensional images. The peak gradient across the aortic valve is less than 10 mmHg. Mitral, tricuspid, and pulmonic valves are without evidence of structural abnormality with moderate mitral regurgitation, very mild tricuspid regurgitation, and mild pulmonic insufficiency. The aortic root is normal in size. 3. Normal left ventricular chamber size with upper normal wall thickness suggested on 2- dimensional images. Estimated left ventricular ejection fraction approximately 25% in the setting of global hypokinesis. Doppler suggests grade 1 left ventricular diastolic dysfunction. Left atrium is mildly enlarged. The right atrium and right ventricle are normal in size with grossly preserved right ventricular systolic function. 4. No pericardial effusion. 5. Left pleural effusion evident. 6. Appearance of inferior vena cava suggests normal central venous pressure. cc: MD Dong Nguyen MD
[2019-03-06 11:42] LABS: CALCIUM 8.9 mg/dL (8.8-10.2); CREATININE 2.4 mg/dL (0.7-1.2); MAGNESIUM 2.1 mg/dL (1.5-2.7); POTASSIUM 3.8 mmol/L (3.5-5.1)
--- NOTE | 2019-03-06 15:12 | Diag Imaging Result Doc PS360 ---
EXAM: US RENAL 2 (RETROPER) COMPLETE 03/06/2019 HISTORY: librado/arf TECHNIQUE: Renal ultrasound COMMENT: The kidneys are hyperechoic. There is no evidence of hydronephrosis or mass. The urinary bladder is unremarkable. The right kidney measures 10.5 x 4.4 x 4.3 cm the left is 10.4 x 4.7 x 4.8 cm. There is a 13 mm cyst in the left kidney in the upper pole. There may be small stones versus calcifications in the central renal echocomplex on the left. There are no previous ultrasound examinations. No previous CT examinations are available. IMPRESSION: Medical renal disease. No evidence of obstructive uropathy. The possibility of left nephrolithiasis cannot be excluded. Electronically signed by Xu Bernardo 03/06/2019 3:10 PM
--- NOTE | 2019-03-06 17:09 | PROGRESS NOTE ---
DATE: 03/06/2019 INTERVAL HISTORY: No acute events overnight. His blood pressure has been better controlled with 130 to 160 systolic. He denies any chest pain or shortness of breath. He denies any nausea, vomiting, or abdominal pain. We discussed about acute congestive heart failure, kidney dysfunction, hypertensive nephropathy, starting him on cholesterol medications, and I answered all of his questions. VITALS: Temperature 97.6 degrees, pulse 82, respiratory 13, blood pressure 140/90, saturating 100% 2 L nasal cannula. Input and output suggests he is negative 5 L since admission. PHYSICAL EXAMINATION: General: He is not in acute distress. Mouth: Oral cavity is moist. Lungs: Air entry bilaterally equal. No wheeze, rhonchi, or crackles. Cardiac: S1, S2 normal. No murmur or gallop. Abdomen: Soft, nontender. Extremities: No lower extremity edema. Neck: No jugular venous distention. Neurologic: He is alert and oriented x3. LABS: No CBC. BMP suggestive of worsening BUN and creatinine. Microbiology - sputum has not been collected. IMAGING: No new imaging. Renal ultrasound suggested medical renal disease without evidence of obstructive uropathy, possibility of left nephrolithiasis. Echocardiogram suggests ejection fraction of 25% with global hypokinesia and grade 1 diastolic dysfunction. ASSESSMENT AND PLAN: 1. Acute hypoxic respiratory failure due to acute pulmonary edema due to hypertensive emergency and acute systolic congestive heart failure, new onset. Continue oxygenation to maintain saturation more than 92% and monitoring in PVC unit. He is currently breathing well on 2 L nasal cannula and saturating 100%. 2. Hypertensive emergency leading to acute pulmonary edema. Increase the dose of carvedilol based on his kidney function. He could be a good candidate for MARY BETH inhibitors in future. 3. Acute systolic congestive heart failure. It could be related to hypertensive heart disease. There was global hypokinesia on echocardiogram. I appreciate Cardiology recommendation about future need of further noninvasive testing, including stress test. 4. Mild left lower lobe pneumonia. Continue intravenous levofloxacin. 5. Kidney dysfunction. This could be acute in the setting of hypertensive emergency versus contrast induced nephropathy vs chronic hypertensive nephropathy. Renal ultrasound has possibility of nonobstructive nephrolithiasis on the left side. I will give him gentle hydration. Follow up with urine electrolytes. He may need outpatient Nephrology followup. 6. Hyperlipidemia. Considering his acute congestive heart failure and essential hypertension I will start him on moderate dose atorvastatin. His LDL is more than 100. DISPOSITION: I will monitor patient inside the hospital as we adjust his medication. Plan of care discussed and his questions have been answered. cc: MD MAYELA Ramsey
--- NOTE | 2019-03-06 17:38 | PROGRESS NOTE ---
DATE: 03/06/2019 SUBJECTIVE: Patient denies shortness of breath or chest discomfort on oxygen per nasal cannula. OBJECTIVE: Vital Signs: Blood pressure 143/90, heart rate 82, oxygen saturation 100% on nasal cannula oxygen at 2 L/minute. Neck: There is no significant jugular venous distention. Respiratory: Auscultation of the chest reveals diminished breath sounds at bases bilaterally. Cardiac exam: Regular rate and rhythm without appreciable murmur or gallop. Extremities: Without edema. LABORATORY DATA: Includes a sodium 138, potassium 3.8, chloride 97, carbon dioxide 35, BUN 38, creatinine 2.4, glucose 94, magnesium 2.1. Echocardiography indicates left ventricular ejection fraction approximately 25% in the setting of global hypokinesis. Pleural effusions noted. IMPRESSIONS: 1. Systolic heart failure with pulmonary edema and bilateral pleural effusions. 2. Hypertensive cardiovascular disease. 3. Acute on chronic renal dysfunction with baseline creatinine on admission 1.8 to 1.9, now increasing 2.4 following intravenous contrast. Suspect superimposed contrast nephropathy on hypertensive renal disease. 4. Chronic cigarette use. RECOMMENDATIONS: 1. Continue Coreg and amlodipine. 2. Gentle diuresis. 3. Ultimately the patient would benefit from screening for coronary disease. However, improvement in his congestive heart failure needs to be achieved first, as well as improvement in renal function. cc: Solomon Millan MD [facility]
[2019-03-06] MEDS ORDERED: NS 500 ML IV SCH (19:00)
[2019-03-06] MEDS: LEVAQUIN 500 MG/D5W 500 MG/100 ML IVPB IV SCH (21:55)
[2019-03-06] MEDS: LIPITOR PO SCH (21:55)
[2019-03-06] MEDS: LOVENOX SUBQ SCH (21:56)
[2019-03-07 06:16] LABS: BASO# 0.03 X1000 (0.0-0.2); BASO% 0.4 % (0.0-0.8); EOS# 0.17 X1000 (0.0-0.7); EOS% 2.3 % (0.0-10.0); HEMATOCRIT 40.7 % (42.0-52.0); HEMOGLOBIN 13.3 g/dL (14.0-18.0); LYMPH# 1.15 X1000 (1.2-3.4); LYMPH% 15.7 % (20.5-51.1); MCHC 32.7 g/dL (33-37); MCV 91.7 FL (81-99); MONO# 0.68 X1000 (0.11-0.59); MONO% 9.3 % (1.7-9.3); MPV 12.5 FL (7.4-10.4); NEUT# 5.29 X1000 (1.4-6.5); NEUT% 72.3 % (42.2-75.2); PLT 114 X1000 (130-400); RBC 4.44 XMIL (4.7-6.1); RDW 13.2 % (11.5-14.5); WBC 7.32 X1000 (4.8-10.8)
[2019-03-07 06:38] LABS: CALCIUM 8.7 mg/dL (8.8-10.2); CREATININE 2.4 mg/dL (0.7-1.2); MAGNESIUM 1.9 mg/dL (1.5-2.7); POTASSIUM 3.4 mmol/L (3.5-5.1)
[2019-03-07] MEDS: COREG PO SCH ×2 (08:41→20:33)
[2019-03-07] MEDS: DUONEB (A & A) INH SCH ×4 (11:38→23:46)
--- NOTE | 2019-03-07 13:02 | PROVIDER PROGRESS NOTE ---
Progress Note Chief complaint: I was short of breath and chest pain. HPI:. 53-year-old white male without any past medical history. He takes no medications. Smokes cigarettes but does not use any other substances. He was well until about a week ago when he began having chest discomfort. Coughing. He had worsening of those symptoms up until Wednesday when he presented to the hospital. No swelling, nausea/vomiting. No diarrhea. No weight loss or gain. No chills fever sweat tonight towards etc. He does note foamy urine that has been present for a while. Creatinine on presentation was 1.9. 2.4 today. He did receive IV contrast on the day of admission. No pulmonary embolus and no pulmonary edema. PMHx. none Medication. none Allergies. none Social exam: works at [employer], Lives with brother, admits to tobacco use, no illicit drug use or alcohol. Family history: mother and father both had myocardial infarction ROS noncontributory otherwise. Physical exam: Healthy, thin white male in no distress. Skin is warm and dry without lesions, bruising. PERRLA. OP clear. Normal tongue and teeth. Neck is supple and trachea is midline with no JVD. PMI nondisplaced. RRR without mrg. Lungs equal without crackles or wheezes. Abd soft and nontender with normal bowel sounds. No HSM. Ext no CCE. Neuro exam nonfocal. Assessment and plan: Acute kidney injury. Presumed. With proteinuria and hypertension. BP improved with treatment. Rise in creatinine may be related to IV contrast. Will complete his evaluation but he may need to biopsy his kidney.
--- NOTE | 2019-03-07 13:37 | Diag Imaging Result Doc PS360 ---
EXAM: CHEST-2 VIEWS 03/07/2019 HISTORY: Pneumonia TECHNIQUE: PA and lateral chest COMMENT: There are bilateral pleural fluid collections. The interstitial and alveolar opacities which were present previously on 03/04/2019 have improved markedly. The pulmonary vascularity is no longer engorged. IMPRESSION: Improved pulmonary edema. Bilateral pleural effusions and apparent left lower lobe pneumonia. Electronically signed by Xu Bernardo 03/07/2019 1:34 PM
--- NOTE | 2019-03-07 19:51 | PROGRESS NOTE ---
DATE: 03/07/2019 SUBJECTIVE: The patient is sitting up in bed resting comfortably. He states that he feels okay today. He denies having any shortness of breath or chest pain. He reports that he has never been hospitalized before. OBJECTIVE: Vital Signs: Temperature 98 degrees, blood pressure 148/100, heart rate 74, respirations 18, O2 saturation is 100% on 2 L nasal cannula. Intake 1.7 L, output 1.4 L. General: This is a thin, cachectic male, sitting up in bed in no acute distress. Head: Normocephalic, atraumatic. Heart: S1, S2 normal. Regular rate and rhythm. Lungs: Equal breath sounds bilaterally. No wheezing. No rales. Abdomen: Positive bowel sounds. Soft, nontender, nondistended. Extremities: No edema. No cyanosis. Neurologic: The patient is alert and oriented x4. LABORATORY: White blood cell count 7.3, hemoglobin 13, hematocrit 40, platelets 114,000. Sodium 137, potassium 3.4, chloride 98, CO2 of 25, BUN 45, creatinine 2.4, glucose 114, magnesium 1.9. ProBNP 3873. DIAGNOSTIC DATA: Chest x-ray shows improved pulmonary edema. Bilateral pleural effusions and left lower lobe pneumonia. ASSESSMENT AND PLAN: 1. Acute hypoxemic respiratory failure. Multifactorial. The patient has pulmonary edema, pneumonia, and bilateral pleural effusions. 2. Pneumonia. We will adjust the patient's antibiotic regimen. Continue with the bronchodilator therapy. Will also add incentive spirometry. 3. Acute pulmonary edema. Improved. Further management as per the it risk analyst. 4. Bilateral pleural effusions. Stable. Continue to monitor closely for improvement. 5. Acute kidney injury, multifactorial. Urine studies are currently pending. Nephrology has been consulted for further recommendations. 6. Hypertension, uncontrolled. Continue with antihypertensive titration as directed by the it risk analyst. 7. Acute on chronic systolic congestive heart failure exacerbation. The patient has an ejection fraction of 25%, with global hypokinesis seen on the echocardiogram done 3 days ago. The patient is scheduled to undergo a Lexiscan tomorrow. Further management as per the it risk analyst. 8. Deep vein thrombosis prophylaxis. Continue on Lovenox. cc: Lubna Daniels MD MTDWalt
[2019-03-07] MEDS: LIPITOR PO SCH (20:33)
[2019-03-07] MEDS: LOVENOX SUBQ SCH (20:33)
[2019-03-08] MEDS: DUONEB (A & A) INH SCH ×6 (03:23→23:28)
[2019-03-08] MEDS: MAXIPIME 1 GM in NS 50 ML IV SCH ×2 (03:41→15:42)
[2019-03-08] MEDS: ZYVOX 600 MG/D5W 600 MG/300 ML IVPB IV SCH ×2 (03:41→15:42)
[2019-03-08 06:39] LABS: BASO# 0.04 X1000 (0.0-0.2); BASO% 0.6 % (0.0-0.8); EOS# 0.15 X1000 (0.0-0.7); EOS% 2.3 % (0.0-10.0); HEMATOCRIT 40.2 % (42.0-52.0); IMM GRAN# 0.02 X1000 (0.0-0.04); IMM GRAN% 0.3 % (0.0-0.5); LYMPH# 0.94 X1000 (1.2-3.4); LYMPH% 14.3 % (20.5-51.1); MCH 29.8 PG (27-31); MCHC 32.3 g/dL (33-37); MCV 92.2 FL (81-99); MONO# 0.71 X1000 (0.11-0.59); MONO% 10.8 % (1.7-9.3); MPV 12.7 FL (7.4-10.4); NEUT# 4.71 X1000 (1.4-6.5); NEUT% 71.7 % (42.2-75.2); PLT 119 X1000 (130-400); RBC 4.36 XMIL (4.7-6.1); RDW 13.1 % (11.5-14.5); WBC 6.57 X1000 (4.8-10.8)
[2019-03-08 07:07] LABS: CALCIUM 8.4 mg/dL (8.8-10.2); POTASSIUM 3.9 mmol/L (3.5-5.1)
[2019-03-08] MEDS ORDERED: LEXISCAN ONE (08:30)
[2019-03-08] MEDS ORDERED: AMINOPHYLLINE ONE (08:56)
[2019-03-08] MEDS: PRINIVIL PO SCH (10:07)
[2019-03-08] MEDS: COREG PO SCH ×2 (10:08→21:29)
[2019-03-08 10:54] LABS: URINE SOURCE CLEAN CATCH
[2019-03-08 11:00] LABS: BILIRUBIN URINE NEGATIVE (NEGATIVE); BLOOD URINE NEGATIVE (NEGATIVE); COLOR STRAW; GLUCOSE URINE NEGATIVE (NEGATIVE); KETONE URINE NEGATIVE (NEGATIVE); LEUKOCYTES URINE NEGATIVE (NEGATIVE); NITRITE URINE NEGATIVE (NEGATIVE); PH URINE 6.5; PROTEIN URINE 30 mg/dL (NEGATIVE); SP GRAVITY URINE 1.008; TURBIDITY URINE CLEAR (CLEAR); UROBILINOGEN URINE NORMAL (NORMAL)
[2019-03-08 11:02] LABS: UR EPITHELIAL CELLS <10 /HPF (<10); URINE BACTERIA NEGATIVE /HPF; URINE RBC <10 /HPF (<10); URINE WBC <10 /HPF (<10)
--- NOTE | 2019-03-08 13:14 | NEPHROLOGY PROGRESS NOTE ---
DATE: 03/08/2019 SUBJECTIVE: No further chest pain. No shortness of breath. OBJECTIVE: Vital Signs: Blood pressure 170/108, heart rate 77, respirations 16, afebrile. Intake 1.5 L. Output 700 mL but incompletely measured. General: No acute distress. Skin is warm and dry. Neck veins are not distended. Cardiovascular: Heart is regular. No gallops or murmurs. Lungs are equal. No crackles. Abdomen: Soft, nontender. Bowel sounds present. Extremities: Have no edema, clubbing or cyanosis. IMPRESSION: Renal failure. Most likely, explanatory diagnosis is hypertensive nephrosclerosis secondary to long-standing untreated hypertension. He does have significant proteinuria which likely is secondary to focal glomerulosclerosis. We will complete his evaluation. Consider renal biopsy, if necessary, but in the short term we will focus on blood pressure management as primary therapeutic target. He is currently receiving carvedilol 12.5 mg daily. I will add lisinopril 20 mg daily. Monitor renal function. cc: Haider Chacon MD
--- NOTE | 2019-03-08 13:54 | Diag Imaging Result Document ---
PROCEDURE NAME: MYOCARDIAL PERF SCAN, STR/REST - 03/08/2019 SUMMARY: The patient was administered 11.3 mCi of technetium 99-m sestamibi after which resting cardiac images were obtained. The patient was subsequently administered Lexiscan 0.4 mg intravenously, after which the heart rate went from 80 beats per minute to 110 beats per minute. The blood pressure went from 173/105 to 183/102. With Lexiscan, the patient denied chest discomfort. Following the administration of Lexiscan, the patient was administered 30.4 mCi of technetium-99m sestamibi, after which gated stress cardiac images were obtained. The patient also received aminophylline 125 mg intravenously following the administration of radiopharmaceutical. Baseline ECG demonstrated normal sinus rhythm and left hypertrophy with repolarization abnormality. With Lexiscan, the baseline ST and T-wave abnormality did not change significantly. SPECT images were reconstructed in the short, horizontal long and vertical axis. Review of these images demonstrated evidence of left ventricular enlargement. There is mild to moderate diminished activity in the entire inferior wall on stress images which appears similar on resting images. No significant reversibility is evident. Gated images demonstrate a calculated left ventricular ejection fraction of 24% with severe global hypokinesis demonstrated. CONCLUSIONS: 1. Adequate response to Lexiscan. 2. Clinically negative for chest pain. 3. Electrocardiographically baseline ST and T-wave abnormality did not change significantly following administration of Lexiscan. 4. Lexiscan sestamibi images demonstrate left ventricular enlargement, fixed mild to moderate diminished activity in the inferior wall possibly due to diaphragm attenuation artifact, although prior inferior infarction is difficult to entirely exclude, but no convincing scintigraphic evidence of inducible myocardial ischemia. Left ventricle enlargement with severely depressed left ventricular systolic function demonstrated. Clinical correlation is recommended. cc: MD Sophie Nguyen PA
--- NOTE | 2019-03-08 15:17 | PROGRESS NOTE ---
DATE: 03/08/2019 SUBJECTIVE: Patient continues without chest discomfort or shortness of breath on room air. OBJECTIVE: Vital signs: Blood pressure 170/103, heart rate 78, oxygen saturation 98% on room air. Neck: There is no significant jugular venous distention. Chest: Clear to auscultation. Cardiac Exam: Reveals a regular rate and rhythm without appreciable murmur or gallop. Extremities: Without edema. LABORATORY DATA: Includes a white blood cell count of 6.57, hematocrit 40.2, hemoglobin 13.0, platelet count 119,000. Sodium 137, potassium 3.9, chloride 100, carbon dioxide 28, BUN 38, creatinine 2.0, glucose 112. Lexiscan myocardial perfusion study demonstrates left ventricular enlargement, fixed mild to moderately diminished activity in the entire inferior wall possibly due to diaphragm attenuation artifact, although previous inferior infarction cannot be excluded, no convincing scintigraphic evidence of inducible myocardial ischemia. Calculated left ventricular ejection fraction on the study was 24% with severe global hypokinesis. IMPRESSIONS: 1. Systolic heart failure, improving with diuresis. 2. Severe dilated cardiomyopathy. Suspect most likely secondary to untreated longstanding hypertension, although underlying ischemia cannot entirely be excluded. Blood pressure still not adequately controlled. 3. Hypertensive cardiovascular disease. 4. Acute on chronic renal dysfunction. Suspect hypertensive renal disease aggravated by contrast nephropathy. Renal function is stabilizing. 5. Chronic cigarette use. RECOMMENDATIONS: 1. Increase Coreg. 2. Further diuresis does not appear needed. 3. Medical management from a cardiology standpoint at this time. The patient needs adequate blood pressure control prior to discharge. cc: Solomon Millan MD
--- NOTE | 2019-03-08 19:27 | PROGRESS NOTE ---
DATE: 03/08/2019 SUBJECTIVE: The patient is resting comfortably. He states he feels a little bit better today. OBJECTIVE: Vital signs: Temperature 99 degrees, blood pressure 150/93, heart rate 80, respirations 20, O2 saturation is 100% on 2 L nasal cannula.General: This is a chronically ill- appearing elderly male, sitting in bed in no acute distress. Heart: S1, S2 normal. Regular rate and rhythm. Lungs: Equal air entry bilaterally. No wheezing. No rales. Abdomen: Positive bowel sounds. Soft, nontender, nondistended. Extremities: No edema, no cyanosis. Neurologic: The patient is alert and oriented x3. LABORATORY DATA: White blood cell count 6.5, hemoglobin 13, hematocrit 40, platelets 119,000. Sodium 137, potassium 3.9, BUN 38, creatinine 2, glucose 112, calcium 8.4. ASSESSMENT AND PLAN: 1. Acute hypoxemic respiratory failure. Multifactorial. Continue to treat the underlying medical issues. 2. Pneumonia. Continue with antibiotics, bronchodilator therapy and supplemental oxygen. 3. Acute pulmonary edema. Slowly improving. 4. Acute on chronic systolic congestive heart failure exacerbation. Improved. Continue with medication titration as directed by the security attendant. 5. Acute kidney injury on chronic kidney disease. Slowly improving. Nephrology is following. 6. Bilateral pleural effusions. Stable. 7. Uncontrolled hypertension. Continue with medication titration. 8. Dilated cardiomyopathy. Aware. Continue on the current cardiac medications. 9. Deep vein thrombosis prophylaxis. Continue on Lovenox. 10. Disposition. We will consult Physical Therapy. cc: Lubna Daniels MD MTDD
[2019-03-08] MEDS: LOVENOX SUBQ SCH (20:34)
[2019-03-08] MEDS: LIPITOR PO SCH (20:35)
[2019-03-09] MEDS: DUONEB (A & A) INH SCH ×3 (03:20→11:21)
[2019-03-09] MEDS: ZYVOX 600 MG/D5W 600 MG/300 ML IVPB IV SCH (03:51)
[2019-03-09] MEDS: MAXIPIME 1 GM in NS 50 ML IV SCH (03:51)
[2019-03-09 05:53] LABS: BASO# 0.03 X1000 (0.0-0.2); BASO% 0.4 % (0.0-0.8); EOS# 0.13 X1000 (0.0-0.7); EOS% 1.8 % (0.0-10.0); HEMATOCRIT 38.5 % (42.0-52.0); HEMOGLOBIN 12.2 g/dL (14.0-18.0); IMM GRAN# 0.02 X1000 (0.0-0.04); IMM GRAN% 0.3 % (0.0-0.5); LYMPH# 0.93 X1000 (1.2-3.4); LYMPH% 12.9 % (20.5-51.1); MCH 29.3 PG (27-31); MCHC 31.7 g/dL (33-37); MCV 92.5 FL (81-99); MONO% 9.7 % (1.7-9.3); MPV 12.1 FL (7.4-10.4); NEUT# 5.41 X1000 (1.4-6.5); NEUT% 74.9 % (42.2-75.2); PLT 118 X1000 (130-400); RBC 4.16 XMIL (4.7-6.1); RDW 13.2 % (11.5-14.5); WBC 7.22 X1000 (4.8-10.8)
[2019-03-09 06:10] LABS: CALCIUM 8.2 mg/dL (8.8-10.2); CREATININE 2.4 mg/dL (0.7-1.2); POTASSIUM 3.3 mmol/L (3.5-5.1)
[2019-03-09] MEDS ORDERED: KLOR-CON PO ONE (07:21)
[2019-03-09] MEDS: COREG PO SCH ×2 (08:25→09:42)
[2019-03-09] MEDS: PRINIVIL PO SCH (08:25)
[2019-03-09] MEDS ORDERED: FLU VACCINE IM ONE (10:13)
--- NOTE | 2019-03-09 11:04 | Diag Imaging Result Doc PS360 ---
EXAM: CHEST-1 VIEW HISTORY: pneumonia TECHNIQUE: Single view COMPARISON: 03/07/2019 FINDINGS: The lungs are hyperexpanded. There is a small left pleural effusion. Right effusion basilar atelectasis is less pronounced. The heart is mildly prominent. No pulmonary edema. Atelectasis is in the left base. IMPRESSION: Mild interval improvement Electronically signed by Jim Griffiths 03/09/2019 11:02 AM
[2019-03-09 11:53] VITALS: BP 158/103
--- NOTE | 2019-03-09 13:53 | PROVIDER PROGRESS NOTE ---
Progress Note Subjective: Pt voices feeling better, denies any chest pain, n/v, shortness of breath, or change in appetite. Objective: temperature 98.1, pulse 81, respirations 16, blood pressure 149/82, 02 sat 99% on room air. General: chronically ill appearing white male lying in bed in no acute distress HEENT: normocephalic, atraumatic, mucous membranes moist, trachea midline. Skin: warm and dry. Neck: supple, no JVD. Cardiovascular: S1,S2, regular rate and rhythm. No murmurs or gallops noted. Respiratory: clear anteriorly with equal air entry. Abdomen: soft, nontender, nondistended. Bowel sounds present. : non-inspected Extremities: no clubbing or edema noted. Neurological: alert and oriented to person, place, and time. Labs: WBC 7.22, hemoglobin 12.2, hematocrit 38.5, platelet count 118, sodium 138, potassium 3.3, chloride 102, carbon dioxide 25, BUN 29, creatinine 2.4, random creatinine 60, total protein 41.1, random sodium 23. Intake 1600, output 500. Impression: Acute kidney injury related to hypertensive nephrosclerosis due to untreated hypertension. Creatinine has a small rise to 2.4 today. Could be because lisinopril was added yesterday. Urine output decreased over 48 hours. Blood pressure. Above target. Fluid volume. Euvolemic on exam. Electrolytes. Mild hypokalemia. PO Potassium ordered. Acid base balance. Stable. AnemiA. Stable. Nutrition. Adequate.
--- NOTE | 2019-03-19 20:34 | DISCHARGE SUMMARY ---
ADMISSION DATE: 03/04/2019 DISCHARGE DATE: 03/09/2019 FINAL DISCHARGE DIAGNOSIS: 1. Acute hypoxemic respiratory failure. 2. Pneumonia. 3. Acute pulmonary edema. 4. Acute on chronic systolic congestive heart failure exacerbation. 5. Acute kidney injury on chronic kidney disease. 6. Bilateral pleural effusions. 7. Hypertension. 8. Dilated cardiomyopathy. IMAGIN. Pulmonary arteriogram performed on 03/04/2019 that revealed congestive heart failure. No evidence of pulmonary embolism. 2. Renal ultrasound which revealed medical renal disease. 3. Myocardial perfusion scan performed on 03/08/2019 that revealed left ventricular enlargement with severely depressed left ventricular systolic function. HOSPITAL COURSE: Mr. Jones is a 53-year-old male with a history of multiple medical problems who presented to the ER with shortness of breath. On admission a pulmonary arteriogram was done that was noted to be negative for PE but did reveal heart failure. The patient was admitted to the hospitalist service and Cardiology was consulted. The patient's clinical exam also supported volume overload with heart failure. The patient was noted to have acute on chronic kidney injury superimposed on chronic kidney disease so Nephrology was consulted. The patient was also treated for pneumonia that was seen on chest x-ray as well. The patient was treated with diuretic therapy initially with improvement in his volume status as well as antibiotics for the pneumonia. The patient underwent a myocardial perfusion scan as well. The patient continued to improve clinically and was ultimately cleared for discharge home. DISCHARGE MEDICATIONS: 1. Aspirin 81 mg p.o. daily. 2. Lipitor 10 mg p.o. at bedtime. 3. Coreg 25 mg oral twice a day. 4. Levaquin 500 mg oral daily. 5. Lisinopril 20 mg p.o. daily. DISCHARGE DIET: Low-sodium, low-cholesterol diet. ACTIVITY: As tolerated. FOLLOWUP INSTRUCTIONS: The patient will need to follow up with Dr. Chacon on 04/11/2019 at 3:30 p.m., the patient will need to follow up with Dr. Millan on 04/07/2019 at 2:30 p.m. cc: Lubna Daniels MD
== END 2019-03-09 12:30 | disposition home or self-care (01) | DRG 291 ==
LOC: ED 17:11 → EDIPHOLD 22:53 → SUATTDRO 22:53 → 2N 03-05 13:39
PROVIDERS: ATTEND Internal Medicine